=== PATIENT | male | born 1995 | race Caucasian/White ===

== ENCOUNTER 2019-02-25 01:49 | Emergency (ER) | payer OTHER ==
[~2019-02-25] VITALS: Ht 165.1 cm; Wt 72.7 kg
[2019-02-25 02:08] VITALS: BP 128/77
== END 2019-02-25 02:55 | disposition home or self-care (01) ==
LOC: EMS 01:49
DX: F19.10 Other psychoactive substance abuse, uncomplicated (principal); F17.210 Nicotine dependence, cigarettes, uncomplicated; F11.90 Opioid use, unspecified, uncomplicated; F12.90 Cannabis use, unspecified, uncomplicated

== ENCOUNTER 2023-05-15 18:51 | Emergency (ER) | payer OTHER ==
[~2023-05-15] VITALS: Ht 167.6 cm; Wt 81.8 kg
[2023-05-15 19:30] VITALS: BP 137/74; PULSE 96; RESP 19; TEMP 97.9
== END 2023-05-15 21:29 ==
LOC: EMS 19:09
DX: F17.210 Nicotine dependence, cigarettes, uncomplicated; F12.90 Cannabis use, unspecified, uncomplicated; F15.90 Other stimulant use, unspecified, uncomplicated
CPT/HCPCS: 99283; Z7502